=== PATIENT | female | born 1985 | race Hispanic/Latino ===

== ENCOUNTER 2021-10-22 12:40 | Emergency (ER) | payer OTHER ==
--- OUTSIDE RECORDS SUMMARY | 2021-10-22 12:43 | XMS REPORT | Continuity of Care Document ---
:1985 Author Organization [facility] t Address [address] [place] [address] Care Team Providers Name Role Phone ARMEN Attending Clinician Unavailable Yuki Attending Clinician Unavailable Tracy Attending Clinician Unavailable ARMEN Admitting Clinician Unavailable Yuki Admitting Clinician Unavailable Tracy Admitting Clinician Unavailable Payers Payer Name Policy Type Policy Number Effective Date Expiration Date S atul [facility] [id number] 2016 [employer] 00:00:00 (MEDICAID HMO) [facility] [id number] [facility] (MEDICAID HMO) [place] [id number] [place]ICAID[place] Problems Condition Condition Condition Status Onset Resolution Last Treating Co mments Source Name Details Category Date Date Treatment Clinician Date Chlamydial Chlamydial Problem Active [facility] cervicitis Cervicitis 7-20 da 00:00: Medical 00 Group Bacterial Bacterial Problem Active 2017-07 [facility] vaginosis Vaginosis 0-26 da 00:00: Medical 00 Group Pain in Pain in Problem Active 2017-07 [facility] pelvis Pelvis 0-26 da 00:00: Medical 00 Group 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 0-26 da cells of Cells of 00:00: Medica l undetermin Undetermin 00 Gr oup ed ed significan Significan ce on ce on cervical Cervical Papanicola Papanicola ou smear ou Smear Essential Essential Problem Active [facility] hypertensi Hypertensi 3-09 da on on 00:00: Medical 00 Group Secondary Secondary Problem Active [facility] dysmenorrh Dysmenorrh 9-05 da ea ea 00:00: Medical 00 Group Menorrhagi Menorrhagi Problem Active [facility] a a 9-05 da 00:00: Medical 00 Group Endocervic Endocervic Problem Active [facility] al polyp al Polyp 8-15 da 00:00: Medical Group Cervicovag Cervicovag Problem Active [facility] inal inal 8-15 da cytology: Cytology: 00:00: Medi sommer 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 Anxiety Anxiety Problem Active [facility] 6-22 da 00:00: Medical 00 Group Allergies, Adverse Reactions, Alerts Allergy Allergy Status Severity Reaction(s) Onset Inactive Treating Comm ents Source Name Type Date Date Clinician Coconut Allergy Active Moderate Hives [facility] Zofran Allergy Active Other [facility] Social History Smoking Status Start Date Stop Date Source Former Smoker [facility] Medications Ordered Filled Start Stop Current Ordering Indication Dosage Frequency Signature Comments Components Source Medication Medication Date Date Medication? Clinician (SIG) Name Name Celebrex Celebrex No 1capsul Q1D Celebrex [facility] 200 mg 200 mg e(s) 200 mg da capsule capsule capsule Medica l Take 1 Take 1 Take 1 Group capsule capsule capsule every day every day every day by oral by oral by oral route. route. route. hydroxyzine hydroxyzine No hydroxyzin [facility] HCl 25 mg HCl 25 mg e HCl 25 d a tablet tablet mg tablet Medica l Group lisinopril lisinopril No lisinopril [facility] 7.5 mg once 7.5 mg once 7.5 mg da daily daily once daily Medical Group meloxicam meloxicam No meloxicam [facility] 15 mg 15 mg 15 mg da tablet TAKE tablet TAKE tablet Medical 1 TABLET BY 1 TABLET BY TAKE 1 Group MOUTH EVERY MOUTH EVERY TABLET BY DAY FOR 7 DAY FOR 7 MOUTH DAYS DAYS EVERY DAY FOR 7 DAYS Paxil Paxil No Paxil [facility] Vital Signs Vital Name Observation Time Observation Value Comments Source BP Diastolic 2020-07-26 00:00:00 94 mm[Hg] [facility] Height 2020-07-26 00:00:00 63 [in_i] [facility] BMI (Body Mass 2020-07-26 00:00:00 46.4 kg/m2 [facility] BP Systolic 2020-07-26 00:00:00 139 mm[Hg] [facility] Body Weight 2020-07-26 00:00:00 4192 [oz_av] [facility] BP Diastolic 2020-07-17 00:00:00 95 mm[Hg] [facility] Height 2020-07-17 00:00:00 63 [in_i] [facility] BMI (Body Mass 2020-07-17 00:00:00 46.4 kg[facility]2 [facility] BP Systolic 2020-07-17 00:00:00 130 mm[Hg] [facility] Body Weight 2020-07-17 00:00:00 4192 [oz_av] [facility] BP Diastolic 2020-02-02 00:00:00 96 mm[Hg] [facility] Height 2020-02-02 00:00:00 63 [in_i] [facility] BMI (Body Mass 2020-02-02 00:00:00 45.1 kg/m2 [facility] BP Systolic 2020-02-02 00:00:00 135 mm[Hg] [facility] Body Weight 2020-02-02 00:00:00 254.6 [lb_av] [facility] BP Diastolic 2020-01-06 00:00:00 93 mm[Hg] [facility] Height 2020-01-06 00:00:00 63 [in_i] [facility] BMI (Body Mass 2020-01-06 00:00:00 45 kg/m2 [facility] BP Systolic 2020-01-06 00:00:00 125 mm[Hg] [facility] Body Weight 2020-01-06 00:00:00 4064 [oz_av] [facility] BP Systolic 2019-10-13 00:00:00 127 mm[Hg] [facility] BP Diastolic 2019-10-13 00:00:00 98 mm[Hg] [facility] Height 2019-10-13 00:00:00 63 [in_i] [facility] BP Diastolic 2019-04-19 00:00:00 101 mm[Hg] [facility] Height 2019-04-19 00:00:00 63 [in_i] [facility] BMI (Body Mass 2019-04-19 00:00:00 44.5 kg/m2 [facility] BP Systolic 2019-04-19 00:00:00 143 mm[Hg] [facility] Body Weight 2019-04-19 00:00:00 251.2 [lb_av] [facility] Procedures Procedure Date / Time Performed Performing Clinician [facility] e XR, knee, 3 view 2020-07-17 00:00:00 [facility] US, transvaginal 2019-04-19 00:00:00 [facility] Appendectomy 2017-06-19 00:00:00 Wendy Ceballos [facility] Tubal Ligation [facility] Plan of Care Planned Activity Planned Date Details Comments Source Diagnostic Test 2020-07-26 CBC w/ auto diff [facility] 00:00:00 [code = CBC w/ Group auto diff] Diagnostic Test 2020-07-26 CMP, serum or [facility] 00:00:00 plasma [code = Group CMP, serum or plasma] Diagnostic Test 2020-07-26 rf (rheumatoid [facility] Pending 00:00:00 factor), serum Group [code = rf (rheumatoid factor), serum] Diagnostic Test 2020-07-26 lipid panel, serum [facility] Pending 00:00:00 [code = lipid Group panel, serum] Diagnostic Test 2020-07-26 beach Ab, serum [facility] Pending 00:00:00 [code = beach Ab, Group serum] Encounters Start End Encounter Admission Attending Care Care Encounter Source Date/Time Date/Time Type Type Clinicians Facility Department ID 2021-05-21 2021-05-21 Outpatient ESPINOZA MOORE [id number] [facility] 05:44:00 05:44:00 HN 1102 da [facility] h Program 2020-08-28 2020-08-28 Outpatient Koudela_A MMG MMG [facility] 04:01:00 04:01:00 0401 [facility] 2020-08-28 2020-08-28 Outpatient Koudela_A MMG MMG [id number] -[id number] [facility] 04:01:00 04:01:00 0813 [facility] 2020-08-27 2020-08-27 Outpatient Koudela_A MMG MMG [id number] -[id number] [facility] 10:04:00 10:04:00 0208 [facility] 2020-07-26 2020-07-26 Outpatient Koudela_A MMG MMG [id number] -[id number] [facility] 10:11:00 10:11:00 0107 [facility] 2020-07-26 2020-07-26 Outpatient Koudela_A MMG MMG [id number] -[id number] [facility] 10:11:00 10:11:00 0108 [facility] 2020-07-26 2020-07-26 Rabia MMG [place] - [id number] [facility] 00:00:00 00:00:00 Discovery rosie Silverman PA-C: [address] [place] [address] , Ph. 2020-07-18 2020-07-18 Outpatient K[facility]ela_A MMG MMG [place] 03:05:00 03:05:00 0106 [facility] 2020-07-17 2020-07-17 Outpatient Koudela_A MMG MMG -2019 [facility] 11:24:00 11:24:00 1229 [facility] 2020-07-17 2020-07-17 Rabia ROJASG [place] - [id number] [facility] 00:00:00 00:00:00 Discovery rosie Silverman PA-C: 600 [facility] - [address] [place] [address] [place] [address] , Ph. 2020-02-02 2020-02-02 Outpatient Hawkins_M MMG MMG [id number] -2019 [facility] 07:07:00 07:07:00 0716 [facility] 2020-02-02 2020-02-02 Richard MMG [place] - [id number] [facility] 00:00:00 00:00:00 Discovery rosie Tan MD: 600 [facility] [address], [place] [address] , Ph. [phone] 2020-01-31 2020-01-31 Outpatient Hawkins_M MMG MMG [place] 10:16:00 10:16:00 0715 [facility] 2020-01-09 2020-01-09 Outpatient Hawkins_M MMG MMG [id number] [facility] 01:26:00 01:26:00 0622 [facility] 2020-01-09 2020-01-09 Outpatient Hawkins_M MMG MMG [id number] [facility] 01:26:00 01:26:00 0623 [facility] 2020-01-06 2020-01-06 Outpatient Hawkins_M MMG MMG [place] 05:32:00 05:32:00 0619 Medical Group 2020-01-06 2020-01-06 Cora G [place] - [id number] [facility] 00:00:00 00:00:00 Yannick Castellanos Medical SIGNAL WIRER: [address] [facility] [address], [place] [address] , Ph. 2019-11-03 2019-11-03 Outpatient Hawkins_M MMG MMG [place] 02:04:00 02:04:00 0508 [facility] 2019-11-03 2019-11-03 Outpatient Hawkins_M MMG MMG [id number] [facility] 02:04:00 02:04:00 0512 [facility] 2019-10-17 2019-10-17 Outpatient Hawkins_M MMG MMG [id number] [facility] 11:20:00 11:20:00 0330 [facility] 2019-10-16 2019-10-16 Outpatient Hawkins_M MMG MMG [id number] [facility] 05:44:00 05:44:00 0329 [facility] 2019-10-13 2019-10-13 Outpatient Hawkins_M MMG MMG [id number] [facility] 04:36:00 04:36:00 0326 [facility] 2019-10-13 2019-10-13 Cora [facility] [place] - [id number] [facility] 00:00:00 00:00:00 Nazia Peñaloza, [facility] Medical SIGNAL WIRER: 600 [facility] [address], [place] [address] , Ph. 2019-04-19 2019-04-19 Richard [facility] [place] - [id number] [facility] 00:00:00 00:00:00 Discovery rosie Tan MD: [address] [place] [address] - [address], [place] [address] , Ph. [phone] Results Test Description Test Time Test Comments Results Result Comments Source Erythrocyte sedimentation rate 2020-07-17 10:20:00 Test Item Value Reference Range Interpretation Comme nts erythrocyte sedimentation rate (test code = erythrocyte 41 mm/HR 0.00-20 H sedimentation rate) [facility] - [id number] 09:17:13 Test Item Value Reference Range Interpretation Comments Leukocytes (test code = Leukocytes) Trace Nitrite (test code = Nitrite) negative Urobilinogen (test code = .2 Urobilinogen) Protein (test code = Protein) Negative pH (test code = pH) 6.0 Blood (test code = Blood) Negative Specific Destrehan (test code = 1.030 Specific Destrehan) Ketone (test code = Ketone) Negative Bilirubin (test code = Bilirubin) Negative Glucose (test code = Glucose) Negative Appearance (test code = Appearance) Clear Color (test code = Color) Yellow [facility] panel - [id number] 17:06:00 Test Item Value Reference Range Interpretation Comments Leukocytes (test code = Small Leukocytes) Nitrite (test code = negative Nitrite) Urobilinogen (test code = .2 Urobilinogen) Protein (test code = Negative Protein) pH (test code = pH) 5.5 Blood (test code = Blood) Hemolyzed: Trace Specific Destrehan (test code 1.030 = Specific Destrehan) Ketone (test code = Ketone) Negative Bilirubin (test code = Small Bilirubin) Glucose (test code = Negative Glucose) Appearance (test code = Cloudy Appearance) Color (test code = Color) Dark Yellow [facility] panel - [id number] 17:06:00 Test Item Value Reference Range Interpretation Comments Leukocytes (test code = Small Leukocytes) Nitrite (test code = negative Nitrite) Urobilinogen (test code = .2 Urobilinogen) Protein (test code = Negative Protein) pH (test code = pH) 5.5 Blood (test code = Blood) Hemolyzed: Trace Specific Destrehan (test code 1.030 = Specific Destrehan) Ketone (test code = Ketone) Negative Bilirubin (test code = Small Bilirubin) Glucose (test code = Negative Glucose) Appearance (test code = Cloudy Appearance) Color (test code = Color) Dark Yellow [facility]stick[facility] panel - [id number] 15:05:40 Test Item Value Reference Range Interpretation Comments Leukocytes (test code = Leukocytes) Trace Nitrite (test code = Nitrite) negative Urobilinogen (test code = 1 Urobilinogen) Protein (test code = Protein) Negative pH (test code = pH) 6.5 Blood (test code = Blood) Negative Specific Destrehan (test code = 1.020 Specific Destrehan) Ketone (test code = Ketone) Negative Bilirubin (test code = Bilirubin) Negative Glucose (test code = Glucose) Negative Appearance (test code = Appearance) Clear Color (test code = Color) Yellow [facility]
--- NOTE | 2021-10-22 14:48 | RAD REPORT ---
EXAM DESCRIPTION: RAD - Chest Single View - 10/22/2021 2:41 pm CLINICAL HISTORY: CHEST PAIN Chest pain. COMPARISON: No comparisons FINDINGS: Portable technique limits examination quality. The lungs are grossly clear. The heart is normal in size. No displaced fractures. IMPRESSION: No acute intrathoracic process suspected.
[2021-10-22 14:55] LABS: Absolute Lymphocytes (CBC) 1.4 K/uL (0.7-4.9); MPV 7.9 fL (7.6-11.3); RBC Red Blood Cell Count 4.73 M/uL (3.86-4.86)
[2021-10-22 15:32] LABS: Potassium 3.9 mmol/L (3.5-5.1); Troponin High Sensitivity 3.1 pg/mL (<58.9)
--- NOTE | 2021-10-22 15:54 | ER ---
Nurse's Notes [facility] Name: Mary Houston Age: 36 yrs Sex: Female : 1985 Arrival Date: 10/22/2021 Time: 12:43 Bed 14 Private MD: Diagnosis: Chest pain, hypertension now resolved Presentation: 10/22 12:57 Chief complaint: Patient states: Entire body swelling, chest pressure, L hand ll1 fingertips feel numb for 3 days. Out of her lisinopril for 4 days. Coronavirus screen: Vaccine status: Patient reports receiving the 2nd dose of the covid vaccine. Client denies travel out of the [place] in the last 14 days. At this time, the client does not indicate any symptoms associated with coronavirus-19. Ebola Screen: Patient denies travel to an Ebola-affected area in the 21 days before illness onset. Initial Sepsis Screen: Does the patient meet any 2 criteria? No. Patient's initial sepsis screen is negative. Does the patient have a suspected source of infection? No. Patient's initial sepsis screen is negative. Risk Assessment: Do you want to hurt yourself or someone else? Patient reports no desire to harm self or others. Onset of symptoms was October 20, 2021. 12:57 Method Of Arrival: Ambulatory ll1 12:57 Acuity: FREIDA 3 ll1 Triage Assessment: 12:58 General: Appears in no apparent distress. Behavior is calm, cooperative, appropriate ll1 for age. Pain: Complains of pain in all over. Neuro: No deficits noted. Cardiovascular: Reports chest pain, fatigue, nausea. GI: Reports nausea. Musculoskeletal: Reports pain in all over. Historical: - Allergies: 12:56 Zofran; ll1 12:56 Coconut; ll1 - PSHx: 12:56 Appendectomy; tubal ligation; ll1 - Immunization history:: Client reports receiving the 2nd dose of the Covid vaccine. - Social history:: Smoking status: Patient reports the use of cigarette tobacco products, denies chronic smoking, but will smoke occasionally. Screenin:19 Abuse screen: Denies threats or abuse. Denies injuries from another. Nutritional ww screening: No deficits noted. Tuberculosis screening: No symptoms or risk factors identified. Fall Risk None identified. Assessment: 14:15 General: Appears in no apparent distress. comfortable, Behavior is calm, cooperative. ww Pain: Denies pain. Complains of pain in anterior aspect of left upper chest and mid-sternal area Pain does not radiate. Pain began 2-3 days ago. Neuro: Level of Consciousness is awake, alert, obeys commands, Oriented to person, place, time, situation, Moves all extremities. Speech is normal. Cardiovascular: Capillary refill < 3 seconds Patient's skin is warm and dry. Chest pain quality is pressure. Cardiovascular: Reports since recently admitted at [place] and had a stress test and was informed her results were normal. She admits to not taking her blood pressure for the past 4 days. 14:15 Respiratory: No deficits noted. Airway is patent Respiratory effort is even, unlabored, ww Respiratory pattern is regular, symmetrical. GI: Abdomen is obese. Derm: Skin is healthy with good turgor. 15:30 Reassessment: Patient appears in no apparent distress at this time. No changes from previously documented assessment. Patient and/or family updated on plan of care and expected duration. Pain level reassessed. Patient is alert, oriented x 3, equal unlabored respirations, skin warm/dry/pink. 16:40 Reassessment: Patient appears in no apparent distress at this time. No changes from previously documented assessment. Patient and/or family updated on plan of care and expected duration. Pain level reassessed. Patient is alert, oriented x 3, equal unlabored respirations, skin warm/dry/pink. Vital Signs: 12:57 BP 144 / 103; Pulse 72; Resp 17; Temp 98.2; Pulse Ox 99% ; Weight 117.93 kg; Height 5 ll1 ft. 3 in. (160.02 cm); Pain 8/10; 14:19 BP 124 / 89; Pulse 74; Resp 16; Pulse Ox 100% on R/A; ww 15:30 BP 117 / 79; Pulse 70; Resp 19; Pulse Ox 99% on R/A; ww 16:40 BP 123 / 74; Pulse 68; Resp 16; Pulse Ox 100% on R/A; ww 12:57 Body Mass Index 46.06 (117.93 kg, 160.02 cm) ll1 ED Course: 12:43 Patient arrived in ED. ds1 12:58 Triage completed. ll1 12:59 Arm band placed on. ll1 13:49 Natalia Del Valle MD is Attending Physician. sp3 14:19 Jazlyn Clarke, RN is Primary Nurse. ww 14:19 Patient has correct armband on for positive identification. Placed in gown. Bed in low ww position. Call light in reach. Side rails up X 1. electronic device monitor on. Pulse ox on. NIBP on. 14:42 XRAY Chest (1 view) In Process Unspecified. EDMS 16:41 No provider procedures requiring assistance completed. IV discontinued, bleeding ww controlled, No redness/swelling at site. Pressure dressing applied. Patient maintains SpO2 saturation greater than 95% on room air. Administered Medications: 16:27 Not Given (Physician Discretion): Labetalol 10 mg IVP once ww Outcome: 15:54 Discharge ordered by . sp3 16:41 Discharged to home ambulatory. ww 16:41 Condition: stable 16:41 Discharge instructions given to patient, Instructed on discharge instructions, follow up and referral plans. medication usage, safety practices, Demonstrated understanding of instructions, follow-up care, medications, Prescriptions given X 1. 16:49 Patient left the ED. ww Signatures: Dispatcher [employer] EDMI Prema Lopez ds1 Fernanda Gutierrez, RN RN ll1 Natalia Del Valle MD MD sp3 Jazlyn Clarke, RN RN ww
--- NOTE | 2021-10-22 15:54 | EDPHYS ---
Physician Documentation [facility] Name: Mary Houston Age: 36 yrs Sex: Female : 1985 Arrival Date: 10/22/2021 Time: 12:43 Bed 14 Private MD: ED Physician Natalia Del Valle HPI: 10/22 14:34 This 36 yrs old Female presents to ER via Ambulatory with complaints of Leg sp3 Swelling, Numbness, Chest Tightness. 14:34 86-year-old female with a history of possible rheumatoid arthritis presents with sp3 diffuse substernal mild chest pain. Patient states that she ran out of her lisinopril x4 days and since then her symptoms have started. She was just admitted at [facility] a few weeks ago for the same thing and she was discharged after having a full cardiac rule out, echocardiogram, and cardiac stress test. She was discharged on lisinopril with no other medications. Currently in the ED she is chest pain-free and states that she has no shortness of breath, Patel pain, nausea, vomiting, diarrhea, fever, cough, URI symptoms, any other ROS at this time.. Historical: - Allergies: 12:56 Zofran; ll1 12:56 Coconut; ll1 - PSHx: 12:56 Appendectomy; tubal ligation; ll1 - Immunization history:: Client reports receiving the 2nd dose of the Covid vaccine. - Social history:: Smoking status: Patient reports the use of cigarette tobacco products, denies chronic smoking, but will smoke occasionally. ROS: 14:36 Constitutional: Negative for fever, chills, and weight loss, Eyes: Negative for injury, sp3 pain, redness, and discharge, ENT: Negative for injury, pain, and discharge, Neck: Negative for injury, pain, and swelling, Cardiovascular: Negative for chest pain, palpitations, and edema, Respiratory: Negative for shortness of breath, cough, wheezing, and pleuritic chest pain, Abdomen/GI: Negative for abdominal pain, nausea, vomiting, diarrhea, and constipation, Back: Negative for injury and pain, MS/Extremity: Negative for injury and deformity, Skin: Negative for injury, rash, and discoloration, Neuro: Negative for headache, weakness, numbness, tingling, and seizure, Psych: Negative for depression, anxiety, suicide ideation, homicidal ideation, and hallucinations, Hematologic/Lymphatic: Negative for swollen nodes, abnormal bleeding, and unusual bruising. Exam: 13:52 ECG was reviewed by the Attending Physician. sp3 13:54 EKG demonstrates normal sinus rhythm at 70 bpm with normal intervals, normal QRS, sp3 normal axis, mild J-point elevation precordially with normal ST/T segments without evidence of ischemia. 15:51 Constitutional: This is a well developed, well nourished patient who is awake, alert, sp3 and in no acute distress. Head/Face: Normocephalic, atraumatic. Eyes: Pupils equal round and reactive to light, extra-ocular motions intact. Lids and lashes normal. Conjunctiva and sclera are non-icteric and not injected. Cornea within normal limits. Periorbital areas with no swelling, redness, or edema. ENT: Nares patent. No nasal discharge, no septal abnormalities noted. External auditory canals are clear. Oropharynx with no redness, swelling, or masses, exudates, or evidence of obstruction, uvula midline. Mucous membranes moist. Neck: Trachea midline, no thyromegaly or masses palpated, and no cervical lymphadenopathy. Supple, full range of motion without nuchal rigidity, or vertebral point tenderness. No Meningismus. Chest/axilla: Normal chest wall appearance and motion. Nontender with no deformity. No lesions are appreciated. Cardiovascular: Regular rate and rhythm with a normal S1 and S2. No gallops, murmurs, or rubs. Normal PMI, no JVD. No pulse deficits. Respiratory: Lungs have equal breath sounds bilaterally, clear to auscultation and percussion. No rales, rhonchi or wheezes noted. No increased work of breathing, no retractions or nasal flaring. Abdomen/GI: Soft, non-tender, with normal bowel sounds. No distension or tympany. No guarding or rebound. No evidence of tenderness throughout. Back: No spinal tenderness. No costovertebral tenderness. Full range of motion. Skin: Warm, dry with normal turgor. Normal color with no rashes, no lesions, and no evidence of cellulitis. MS/ Extremity: Pulses equal, no cyanosis. Neurovascular intact. Full, normal range of motion. Neuro: Awake and alert, GCS 15, oriented to person, place, time, and situation. Cranial nerves II-XII grossly intact. Motor strength 5/5 in all extremities. Sensory grossly intact. Cerebellar exam normal. Normal gait. Vital Signs: 12:57 BP 144 / 103; Pulse 72; Resp 17; Temp 98.2; Pulse Ox 99% ; Weight 117.93 kg; Height 5 ll1 ft. 3 in. (160.02 cm); Pain 8/10; 14:19 BP 124 / 89; Pulse 74; Resp 16; Pulse Ox 100% on R/A; ww 15:30 BP 117 / 79; Pulse 70; Resp 19; Pulse Ox 99% on R/A; ww 16:40 BP 123 / 74; Pulse 68; Resp 16; Pulse Ox 100% on R/A; ww 12:57 Body Mass Index 46.06 (117.93 kg, 160.02 cm) ll1 MDM: 13:54 Patient medically screened. sp3 14:36 Data reviewed: vital signs, nurses notes. ED course: 36-year-old female with likely sp3 noncardiac chest pain. Will obtain 1 set of cardiac markers, chest x-ray, EKG, likely discharge if work-up is negative. Blood pressure is self resolved and the labetalol that was initially ordered was canceled.. 15:51 ED course: Is negative and patient remains chest pain-free. Will discharge patient home sp3 at this time.. 10/22 13:52 Order name: Basic Metabolic Panel; Complete Time: 15:50 sp3 10/22 13:52 Order name: CBC with Diff; Complete Time: 15:05 sp3 10/22 12:59 Order name: EKG; Complete Time: 13:00 1 10/22 13:52 Order name: Troponin HS; Complete Time: 15:50 sp3 10/22 13:52 Order name: XRAY Chest (1 view); Complete Time: 15:05 sp3 10/22 12:59 Order name: EKG - Nurse/Tech; Complete Time: 14:57 1 10/22 13:52 Order name: Cardiac monitoring; Complete Time: 14:57 sp3 10/22 13:52 Order name: IV Saline Lock; Complete Time: 14:57 sp3 10/22 13:52 Order name: Labs collected and sent; Complete Time: 14:57 sp3 Administered Medications: 16:27 Not Given (Physician Discretion): Labetalol 10 mg IVP once ww Disposition Summary: 10/22/21 15:54 Discharge Ordered Location: Home sp3 Condition: Stable sp3 Diagnosis - Chest pain, hypertension now resolved sp3 Followup: sp3 - With: Private Physician - When: Upon discharge from the Emergency Department - Reason: Further diagnostic work-up, Continuance of care Discharge Instructions: - Discharge Summary Sheet sp3 - Hypertension, Adult sp3 Forms: - Medication Reconciliation Form sp3 - Thank You Letter sp3 - Antibiotic Education sp3 - Prescription Opioid Use sp3 Prescriptions: - Lisinopril 10 mg Oral Tablet - take 1 tablet by ORAL route once daily; 30 tablet; Refills: 0, Product sp3 Selection Permitted Signatures: Dispatcher [employer] EDFernanda Dawson RN RN ll1 Natalia Del Valle MD MD sp3 Jazlyn Clarke RN ww Corrections: (The following items were deleted from the chart) 15:51 14:36 ED course: 6-year-old female with likely noncardiac chest pain. Will obtain 1 set sp3 of cardiac markers, chest x-ray, EKG, likely discharge if work-up is negative. Blood pressure is self resolved and the labetalol that was initially ordered was canceled.. sp3
[2021-10-23 03:44] VITALS: TEMP 98.2
[2021-10-23 03:48] VITALS: BP 123/74; O2SAT 100
--- NOTE | 2021-10-23 07:13 | EKG ---
Test Date: 2021-10-22 Test Time: 13:07:12 Metallurgical Specialist: ALP MEASUREMENT RESULTS: Intervals: Rate: 70 FL: 138 QRSD: 84 QT: 378 QTc: 408 [place]wick: P: 26 FL: 138 QRS: 19 T: 34 INTERPRETIVE STATEMENTS: Normal sinus rhythm Normal ECG No previous ECG available for comparison Electronically Signed On 10-23-21 07:09:43 CDT by Jewel Dawson
== END 2021-10-22 16:49 | disposition home or self-care (01) ==
LOC: ER 12:40
DX: R07.9 Chest pain, unspecified (principal); F17.210 Nicotine dependence, cigarettes, uncomplicated; Z88.8 Allergy status to other drugs, medicaments and biological substances; Z91.018 Allergy to other foods
CPT/HCPCS: 36415; 71045; 80048; 84484; 85025; 93005; 99284